=== PATIENT | male | born 1950 | race American Indian/Alaskan Native ===

== ENCOUNTER 2018-11-12 05:01 | Observation (INO) | payer MEDICARE, OTHER ==
[2018-11-12 05:30] LABS: Basophils % (Auto) 0.5 % (0.0-1.8); Eosinophils # (Auto) 0.1 K/mm3 (0.0-0.4); Eosinophils % (Auto) 1.1 % (0.0-4.3); Hematocrit 42.3 % (35.5-45.6); Hemoglobin 14.4 gm/dl (11.8-15.2); Lymphocytes # (Auto) 1.6 K/mm3 (1.2-5.4); Lymphocytes % (Auto) 28.6 % (13.4-35.0); Mean Corpuscular HGB Conc 34 % (32-34); Mean Corpuscular Volume 93 fl (84-94); Monocytes # (Auto) 0.5 K/mm3 (0.0-0.8); Monocytes % (Auto) 9.3 % (0.0-7.3); Platelet Count 228 K/mm3 (140-440); Red Blood Count 4.53 M/mm3 (3.65-5.03)
[2018-11-12 05:47] LABS: BUN/Creatinine Ratio 13; Blood Urea Nitrogen 12 mg/dL (9-20); Calcium 9.1 mg/dL (8.4-10.2); Hemolysis Index 3
--- NOTE | 2018-11-12 06:29 | Emergency Department Report ---
ED General Adult HPI - General Chief complaint: GI Bleed Stated complaint: RECTAL BLEEDING Time Seen by Provider: 11/12/18 06:00 Source: patient, RN notes reviewed, old records reviewed Mode of arrival: Ambulatory Limitations: No Limitations - History of Present Illness Initial comments: Primary care Dr.: [facility] Gastroenterology: Dr. Ric Contreras This is a pleasant 68-year-old gentleman who is not known to this provider previously. The patient recently had a colonoscopy a few days ago. He had monitored anesthesia care, postop diagnosis includes polyp of transverse colon, and benign neoplasm of rectum. Patient then had a mechanical fall, landed on his left hip. He took 3 tablets of 800 mg ibuprofen [id number]. He reports new onset painless dark red rectal bleeding over the past 36 hours. He has no physical pain at this time. He has no symptoms at this time with the exception of bleeding. He did not realize that he was not supposed to take NSAIDs. He denies hematemesis. -: Gradual Severity scale (0 -10): 0 Consistency: intermittent Improves with: none Worsens with: none Associated Symptoms: denies other symptoms - Related Data Allergies Allergy/AdvReac Type Severity Reaction Status Date / Time No Known Allergies Allergy Verified 11/12/18 05:09 ED Review of Systems ROS: Stated complaint: RECTAL BLEEDING Other details as noted in HPI Constitutional: denies: fever Eyes: denies: eye discharge ENT: denies: epistaxis Respiratory: denies: cough Cardiovascular: denies: chest pain, syncope Gastrointestinal: melena, hematochezia. denies: abdominal pain Musculoskeletal: denies: back pain (question black stool), arthralgia, myalgia Skin: denies: rash, lesions Neurological: denies: headache, weakness Hematological/Lymphatic: easy bleeding ED Past Medical Hx - Past Medical History Previous Medical History?: Yes Additional medical history: colon polyps. Bengin neoplasm of rectum - Surgical History Past Surgical History?: No - Social History Smoking Status: Current Some Day Smoker Substance Use Type: None ED Physical Exam - General Limitations: No Limitations General appearance: alert, in no apparent distress - Head Head exam: Present: atraumatic, normocephalic - Eye Eye exam: Present: normal appearance, EOMI. Absent: nystagmus - ENT ENT exam: Present: normal exam, normal orophraynx, mucous membranes moist, normal external ear exam - Neck Neck exam: Present: normal inspection, full ROM. Absent: tenderness, meningismus - Respiratory Respiratory exam: Present: normal lung sounds bilaterally. Absent: respiratory distress - Cardiovascular Cardiovascular Exam: Present: regular rate, normal rhythm, normal heart sounds. Absent: bradycardia, tachycardia, irregular rhythm, systolic murmur, diastolic murmur, rubs, gallop - GI/Abdominal GI/Abdominal exam: Present: soft. Absent: distended, tenderness, guarding, rebound, rigid, pulsatile mass - Rectal Rectal exam: Present: normal inspection, normal rectal tone, heme (+) stool, bloody stool, other (chaperoned by nurse Jeni Morel) - Extremities Exam Extremities exam: Present: normal inspection, full ROM, other (2+ pulses noted in the bilateral upper, lower extremities. Compartments soft. No long bony tenderness. The pelvis is stable.). Absent: pedal edema, joint swelling, calf tenderness - Back Exam Back exam: Present: normal inspection, full ROM. Absent: tenderness, CVA tenderness (R), CVA tenderness (L), paraspinal tenderness, vertebral tenderness - Neurological Exam Neurological exam: Present: alert, other (Extraocular movements intact. Tongue midline. No facial droop. Facial sensation intact to light touch in the V1, V2, V3 distribution bilaterally. 5 and 5 strength in 4 extremities.. Sensation is intact to light touch in 4 extremities.) - Psychiatric Psychiatric exam: Present: normal affect, normal mood - Skin Skin exam: Present: warm, dry, intact, normal color. Absent: rash ED Course Vital Signs 11/12/18 11/12/18 11/12/18 05:08 05:30 06:00 Temperature 98.1 F 98.3 F Pulse Rate 62 74 Respiratory 16 18 Rate Blood Pressure 142/81 Blood Pressure 134/88 154/84 [Right] O2 Sat by Pulse 100 98 98 Oximetry 11/12/18 11/12/18 06:30 07:11 Temperature 98.4 F Pulse Rate 73 Respiratory 18 Rate Blood Pressure 142/81 Blood Pressure 156/88 [Right] O2 Sat by Pulse 98 98 Oximetry - Reevaluation(s) Reevaluation #1: 11/12/18 07:55 Change in plans. [facility] is full, and not accepting any outside transfers. This hospital is able to accommodate the patient from medical necessity standpoint, as we do have gastroenterology extrusion supervisor and available for consultation. We discussed with the patient's opening machine cleaner of record, and we will admit the patient to this facility. Consulted our opening machine cleaner extrusion supervisor, Dr. Dial, who is amenable to seeing the patient in consultation. Clear liquid diet has been recommended, opening machine cleaner will see the patient shortly, Hospital physician is paged to arrange admission. Discussed this updated plan of care with the patient, who verbalized understanding, and who is amenable to this plan of care. Reevaluation #2: 11/12/18 07:59 Dr Clark to admit ED Medical Decision Making - Lab Data Result diagrams: 11/12/18 05:16 11/12/18 05:16 Vital Signs 11/12/18 11/12/18 11/12/18 05:08 05:30 06:00 Temperature 98.1 F 98.3 F Pulse Rate 62 74 Respiratory 16 18 Rate Blood Pressure 142/81 Blood Pressure 134/88 154/84 [Right] O2 Sat by Pulse 100 98 98 Oximetry 11/12/18 06:30 Temperature Pulse Rate Respiratory Rate Blood Pressure 142/81 Blood Pressure [Right] O2 Sat by Pulse 98 Oximetry Lab Results 11/12/18 11/12/18 Range/Units 05:16 05:16 WBC 5.6 (4.5-11.0) K/mm3 RBC 4.53 (3.65-5.03) M/mm3 Hgb 14.4 (11.8-15.2) gm/dl Hct 42.3 (35.5-45.6) % MCV 93 (84-94) fl MCH 32 (28-32) pg MCHC 34 (32-34) % RDW 14.0 (13.2-15.2) % Plt Count 228 (140-440) K/mm3 Lymph % (Auto) 28.6 (13.4-35.0) % [place] % (Auto) 9.3 H (0.0-7.3) % Eos % (Auto) 1.1 (0.0-4.3) % Baso % (Auto) 0.5 (0.0-1.8) % Lymph # 1.6 (1.2-5.4) K/mm3 [place] # 0.5 (0.0-0.8) K/mm3 Eos # 0.1 (0.0-0.4) K/mm3 Baso # 0.0 (0.0-0.1) K/mm3 Seg Neutrophils % 60.5 (40.0-70.0) % Seg Neutrophils # 3.4 (1.8-7.7) K/mm3 Sodium 141 (137-145) mmol/L Potassium 3.9 (3.6-5.0) mmol/L Chloride 103.9 (98-107) mmol/L Carbon Dioxide 27 (22-30) mmol/L Anion Gap 14 mmol/L BUN 12 (9-20) mg/dL Creatinine 0.9 (0.8-1.5) mg/dL Estimated GFR > 60 ml/min BUN/Creatinine Ratio 13 % Glucose 130 H (75-100) mg/dL Calcium 9.1 (8.4-10.2) mg/dL - Medical Decision Making Differential diagnosis, including not limited to: Postprocedural bleeding, medication side effect, angiodysplasia, polyp, diverticulosis Assessment and plan: 68-year-old gentleman status post colonoscopy, who also took ibuprofen unknowingly, now with dark red blood per rectum. He denies additional symptoms. His opening machine cleaner of record does not have privileges at this hospital. For continuity of care, we have recommended transfer to facility where his opening machine cleaner has privileges, for definitive evaluation. Discussed this with the patient who verbalized understanding, he is hemodynamically stable at this time. Contact his opening machine cleaner, Dr. Arianne Conterras, and we discussed the patient's history, physical, laboratory studies. He requests patient be transferred to [facility], where his group has privileges, for consultative services. He has accepted the patient as a transfer. Critical care attestation.: If time is entered above; I have spent that time in minutes in the direct care of this critically ill patient, excluding procedure time. ED Disposition Clinical Impression: Colonoscopy causing post-procedural bleeding Disposition: OP ADMIT IP TO THIS HOSP Is pt being admited?: Yes Does the pt Need Aspirin: No Condition: Good Forms: Accompanied Note
--- NOTE | 2018-11-12 09:39 | History and Physical Report ---
History of Present Illness Date of examination: 11/12/18 Date of admission: 11/12/18 07:59 Medications and Allergies Allergies Allergy/AdvReac Type Severity Reaction Status Date / Time No Known Allergies Allergy Verified 11/12/18 05:09 Home Medications Medication Instructions Recorded Confirmed Last Taken Type No Known Home Medications [No 11/12/18 11/12/18 Unknown History Reported Home Medications] Exam - Constitutional Vitals: Temp Pulse Resp BP Pulse Ox 98.4 F 73 18 156/88 98 11/12/18 07:11 11/12/18 07:11 11/12/18 07:11 11/12/18 07:11 11/12/18 07:11 Results - Labs CBC & Chem 7: 11/12/18 05:16 11/12/18 05:16 Labs: Abnormal lab results 11/12/18 11/12/18 Range/Units 05:16 05:16 [place] % (Auto) 9.3 H (0.0-7.3) % Glucose 130 H (75-100) mg/dL
[2018-11-12] MEDS ORDERED: NACL 0.9% 1000 ML 1,000 ML IV SCH (10:00)
[2018-11-12] MEDS ORDERED: PROTONIX IV SCH (10:00)
--- NOTE | 2018-11-12 10:22 | Gastroenterology Consultation ---
History of Present Illness - Reason for Consult Consult date: 11/12/18 GI bleed Requesting physician: IMMANUEL BRAXTON - History of Present Illness The patient is a 68 yo male who presents with maroon blood per rectum. Pt underwent colonoscopy last week by GI physician with [facility], with multiple large polyps removed with hot snare/piecemeal technique. He was doing well post procedure, had a fall with subsequent back pain, and took ibuprofen for 2-3 days. He started having dark blood per rectum yesterday, with a larger episode early this AM after which he presented to the ED. He has not had further bleeding episodes since admission. Denies abdominal pain. Vitals and H/H stable/normal on admission. Past History Past Medical History: No medical history Past Surgical History: No surgical history Social history: no significant social history Family history: no significant family history Medications and Allergies Allergies Allergy/AdvReac Type Severity Reaction Status Date / Time No Known Allergies Allergy Verified 11/12/18 05:09 Home Medications Medication Instructions Recorded Confirmed Last Taken Type No Known Home Medications [No 11/12/18 11/12/18 Unknown History Reported Home Medications] Active Meds: Active Medications Sodium Chloride (Nacl 0.9% 1000 Ml) 1,000 mls @ 100 mls/hr IV DIRECT FARZANA Pantoprazole Sodium (Protonix) 40 mg IV QDAY FARZANA Review of Systems - Review of Systems All systems: negative (per HPI) Exam - Constitutional Vital Signs: Temp Pulse Resp BP Pulse Ox 98.4 F 73 18 156/88 98 11/12/18 07:11 11/12/18 07:11 11/12/18 07:11 11/12/18 07:11 11/12/18 07:11 General appearance: no acute distress - Respiratory Respiratory effort: normal Respiratory: bilateral: CTA - Cardiovascular Rhythm: regular Heart Sounds: Present: S1 & S2 Extremities: Full ROM - Gastrointestinal General gastrointestinal: Present: soft, non-tender, non-distended - Integumentary Integumentary: Present: clear, warm - Neurologic Neurological: alert and oriented x3 - Psychiatric Psychiatric: appropriate mood/affect - Labs CBC & Chem 7: 11/12/18 05:16 11/12/18 05:16 Lab Results: Laboratory Results - last 24 hr 11/12/18 11/12/18 05:16 05:16 WBC 5.6 RBC 4.53 Hgb 14.4 Hct 42.3 MCV 93 MCH 32 MCHC 34 RDW 14.0 Plt Count 228 Lymph % (Auto) 28.6 [place] % (Auto) 9.3 H Eos % (Auto) 1.1 Baso % (Auto) 0.5 Lymph # 1.6 [place] # 0.5 Eos # 0.1 Baso # 0.0 Seg Neutrophils % 60.5 Seg Neutrophils # 3.4 Sodium 141 Potassium 3.9 Chloride 103.9 Carbon Dioxide 27 Anion Gap 14 BUN 12 Creatinine 0.9 Estimated GFR > 60 BUN/Creatinine Ratio 13 Glucose 130 H Calcium 9.1 Assessment and Plan 1. GI bleed - likely post-polypectomy bleed. vitals stable and H/H normal. monitor today and prep this evening. if bleeding continues or drop in H/H, will plan for colonoscopy tomorrow. if no bleeding with prep, and H/h remains normal can likely be discharged tomorrow. will tentatively plan for colonoscopy tomorrow. okay for clear liquid diet today.
[2018-11-12 14:59] VITALS: BP 144/87
[2018-11-12] MEDS ORDERED: DULCOLAX PO ONE (15:00)
--- NOTE | 2018-11-12 15:04 | Discharge Summary ---
Providers - Providers Date of Admission: 11/12/18 07:59 Date of discharge: 11/12/18 Attending physician: JOSE RAFAEL CHAWLA 11/12/18 07:56 Consult to Physician [CONS] Urgent Comment: called office/joshua Consulting Provider: SHILPA LAST Physician Instructions: Reason For Exam: post scope bleeding Primary care physician: [facility] Hospitalization Condition: Good Disposition: DC-01 TO HOME OR SELFCARE Time spent for discharge: 32 min Core Measure Documentation - Palliative Care Palliative Care/ Comfort Measures: Not Applicable - Core Measures Any of the following diagnoses?: none Exam - Constitutional Vitals: Temp Pulse Resp BP Pulse Ox 97.9 F 70 18 144/87 98 11/12/18 13:26 11/12/18 13:26 11/12/18 13:26 11/12/18 13:26 11/12/18 13:26 General appearance: Present: no acute distress, well-nourished - EENT Eyes: Present: PERRL, EOM intact - Neck Neck: Present: supple, normal ROM - Respiratory Respiratory effort: normal Respiratory: negative: diminished, rales, rhonchi, wheezing - Cardiovascular Rhythm: regular Heart Sounds: Present: S1 & S2 - Extremities Extremities: no ischemia, No edema - Abdominal General gastrointestinal: Present: soft, non-tender, non-distended, normal bowel sounds - Integumentary Integumentary: Present: clear, warm - Musculoskeletal Musculoskeletal: strength equal bilaterally - Psychiatric Psychiatric: appropriate mood/affect, cooperative - Neurologic Neurologic: CNII-XII intact, moves all extremities Plan Activity: advance as tolerated, fall precautions Diet: regular Additional Instructions: Advised to see private GI in 1 week/sooner if needed Follow up with: PRIMARY CARE, [Referring] - 7 Days Forms: Accompanied Note Prescriptions: Pantoprazole [Protonix] 40 mg PO QDAY #14 tablet
[2018-11-12] MEDS ORDERED: GOLYTELY PO ONE (16:00)
== END 2018-11-12 16:55 | disposition home or self-care (01) ==
LOC: ED 05:01 → 2B-ACE 07:59
PROVIDERS: ADMIT Internal Medicine; ATTEND Internal Medicine
DX: K92.2 Gastrointestinal hemorrhage, unspecified (principal); F17.210 Nicotine dependence, cigarettes, uncomplicated
CPT/HCPCS: 36415; 80048; 82271; 85025; 96374; 99284; 99406; C9113; G0378; J7030